=== PATIENT | male | born 1980 | race Caucasian/White ===

== ENCOUNTER 2018-09-27 14:37 | Emergency (ER) | payer BC ==
[2018-09-27 15:08] VITALS: BP 147/80
--- NOTE | 2018-09-27 16:23 | UC ---
Lower Extremity/Ankle HPI - HPI Summary HPI Summary: 38-year-old male comes in with a chief complaint of left foot pain. Pain is been going on for more than a week. It's mostly around the heel. Pain is worse with ambulation. After he rests and then started talking in the first step is the worst pain. No known specific trauma. At work he wears boots. At home he does have some new sneakers. He often goes barefoot at home. When he takes ibuprofen he gets heartburn symptoms therefore he avoids taking ibuprofen. Patient also been having some left elbow pain on and off for 6 months. No specific trauma. Pain is worse with range of motion. No swelling of the joint. Pain is intermittent. - History of Current Complaint Chief Complaint: UCLowerExtremity Stated Complaint: LEFT ELBOW COMPLAINT Time Seen by Provider: 09/27/18 15:28 Pain Intensity: 2 - Allergies/Home Medications Allergies/Adverse Reactions: Allergies Allergy/AdvReac Type Severity Reaction Status Date / Time No Known Allergies Allergy Verified 09/27/18 15:03 PMH/Surg Hx/FS Hx/Imm Hx Previously Healthy: Yes - Surgical History Surgical History: Yes Surgery Procedure, Year, and Place: HERNIA - Family History Known Family History: Positive: Non-Contributory - Social History Alcohol Use: Occasionally Substance Use Type: None Smoking Status (MU): Never Smoked Tobacco Review of Systems All Other Systems Reviewed And Are Negative: Yes Constitutional: Positive: Negative Skin: Positive: Negative Eyes: Positive: Negative ENT: Positive: Negative Respiratory: Positive: Negative Cardiovascular: Positive: Negative Gastrointestinal: Positive: Negative Motor: Positive: Negative Neurovascular: Positive: Negative Musculoskeletal: Positive: Other: - SEE HPI Neurological: Positive: Negative Psychological: Positive: Negative Is Patient Immunocompromised?: No Physical Exam Triage Information Reviewed: Yes Appearance: Well-Appearing, No Pain Distress, Well-Nourished Vital Signs: Initial Vital Signs Temp 98.3 F 09/27/18 15:03 Pulse 68 09/27/18 15:03 Resp 18 09/27/18 15:03 BP 147/80 09/27/18 15:03 Pulse Ox 98 09/27/18 15:03 Vital Signs Reviewed: Yes Eye Exam: Normal Eyes: Positive: Conjunctiva Clear Neck: Positive: Supple Respiratory: Positive: No respiratory distress Musculoskeletal: Positive: Other: - Left elbow has full range of motion is nontender to palpation has normal strength. The left arm fingers wrists and shoulders also have full range of motion full-strength and normal sensation. The left foot is tender to palpation on the plantar aspect of the heel and also the lateral and medial sides of the heel. Is not hot to touch there is no erythema. Achilles tendon is intact and nontender to palpation. Normal capillary refill. Normal sensation. Rest of the foot is nontender to palpation and has full range of motion full-strength. Neurological: Positive: Alert Psychological: Positive: Age Appropriate Behavior Skin Exam: Normal Lower Extremity Course/Dx - Course Course Of Treatment: Patient Name: FRANKLYN ANGEL Medical Record#: [id number] Ordering Physician: Jayden Hennessy MD Acct.#: [id number] : 1980 Age: 38 Sex: M Location: [facility] Exam Date: 09/27/181510 ADM Status: REG ER Order Information: FOOT LEFT 3+ VWS Accession Number: [id number] CPT: 93634 INDICATION: Left foot pain. TECHNIQUE: 3 views of the left foot were obtained. FINDINGS: There is nonfocal diffuse soft tissue swelling. The bones are normal alignment. No fracture is seen. 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 IMPRESSION: SOFT TISSUE SWELLING, NO FRACTURE IS SEEN. <Electronically signed by Dakota Martin MD in OV> 09/27/18 1552 Patient Name: FRANKLYN ANGEL Medical Record#: [id number] Ordering Physician: Jayden Hennessy MD Acct.#: [id number] : 1980 Age: 38 Sex: M Location: [facility] Exam Date: 09/27/181510 ADM Status: REG ER Order Information: ELBOW LEFT 3+VWS Accession Number: [id number] CPT: 51011 INDICATION: Left elbow injury. TECHNIQUE: 4 views of the left elbow were obtained. FINDINGS: The soft tissues are unremarkable. The bone mineralization is within normal limits. No fracture is identified. Anatomic alignment is maintained. There is only mild osteoarthropathy. IMPRESSION: NO EVIDENCE FOR FRACTURE. <Electronically signed by Franklyn Schaefer MD in OV> 09/27/18 7553 I discussed the x-rays with the patient. We discussed treatment of plantar fasciitis to include icing and arch supports and ibuprofen if he can tolerate the ibuprofen with his heartburn. Also of his elbow he can treat with ice. Follow-up will be with sports medicine. - Differential Dx/Diagnosis Provider Diagnosis: Plantar fasciitis of left foot, Left elbow pain Discharge - Sign-Out/Discharge Documenting (check all that apply): Patient Departure All imaging exams completed and their final reports reviewed: Yes - Discharge Plan Condition: Stable Disposition: HOME Prescriptions: HYDROcodone/ACETAMIN 5-325 MG* [[place] 5-325 TAB*] 1 tab PO Q4H PRN #20 tab MDD 6 PRN Reason: Pain - Severe Patient Education Materials: Plantar Fasciitis (ED), Elbow Sprain (ED), Plantar Fasciitis Exercises (ED) Referrals: Felice Sanders DO [Primary Care Provider] - [facility] [Provider Group] Additional Instructions: FOLLOW UP WITH SPORTS MEDICINE. ICE YOUR FOOT AND ELBOW. WEAR ARCH SUPPORTS IN ALL OF YOUR SHOES. AVOID WALKING BAREFOOT. GET REEVALUATED SOONER IF WORSE OR ANY QUESTIONS OR CONCERNS. - Billing Disposition and Condition Condition: STABLE Disposition: Home
== END 2018-09-27 16:42 | disposition home or self-care (01) ==
LOC: UCCORT 14:37
DX: M72.2 Plantar fascial fibromatosis (principal); M25.522 Pain in left elbow
CPT/HCPCS: 99202; G0463